=== PATIENT | female | born 1995 | race Caucasian/White ===

== ENCOUNTER 2016-08-16 23:12 | Emergency (ER) | payer OTHER ==
--- NOTE | 2016-08-16 23:45 | EDPHY ---
H & P Stated Complaint: fall while doing handstand, c/o R ankle pain Time Seen by Provider: 08/16/16 23:39 HPI/ROS: Chief Complaint: Right ankle pain HPI: 20-year-old female was doing a handstand against a door when the door open and she fell backwards into it landing on her right ankle and twisting it. She has had immediate onset of pain and swelling. He has not been able to weight bear. No prior injuries. No other complaints at this time ROS: 10 point Review of Systems is negative except as noted in the HPI. PMH: None Medications: None Allergies: Penicillin Social History: No smoking, occasional alcohol, no recreational drug use Family History: non-contributory Physical Exam: Gen: Awake, Alert, No Distress HEENT: Nose: no rhinorrhea Eyes: PERRLA, EOMI Mouth: Moist mucosa Neck: Supple, no JVD Chest: nontender, lungs clear to auscultation Heart: S1, S2 normal, no murmur Abd: Soft, non-tender, no guarding Back: no CVA tenderness, no midline tenderness Ext: Right ankle is diffusely swollen primarily medial aspect around the medial malleolus. She has no proximal fibular tenderness. Decreased range of motion secondary to pain. She has tenderness over the lateral medial malleolus. She has 2+ DP and PT pulses. Cap refills less than 3 seconds. Skin: no rash Neuro: CN II-XII intact, Sensation grossly intact, Strength 5/5 in bilateral upper and lower extremities - Personal History LMP (Females 10-55): 8-14 Days Ago Current Tetanus/Diphtheria Vaccine: Yes Current Tetanus Diphtheria and Acellular Pertussis (TDAP): Yes - Medical/Surgical History Hx Asthma: No Hx Chronic Respiratory Disease: No Hx Diabetes: No Hx Cardiac Disease: No Hx Renal Disease: No Hx Cirrhosis: No Hx Alcoholism: No Hx HIV/AIDS: No Hx Splenectomy or Spleen Trauma: No Other PMH: denies - Social History Smoking Status: Never smoked Constitutional: Initial Vital Signs Temperature (C) 37.1 C 08/16/16 23:13 Heart Rate 98 08/16/16 23:13 Respiratory Rate 18 08/16/16 23:13 Blood Pressure 119/92 H 08/16/16 23:13 O2 Sat (%) 97 08/16/16 23:13 O2 Delivery Mode Non-Rebreather Mask Allergies/Adverse Reactions: No Known Allergies Allergy (Unverified 08/16/16 23:19) Home Medications: Medication Instructions Recorded NK [No Known Home Meds] 08/16/16 Medical Decision Making - Diagnostics Imaging Results: Left ankle x-ray shows a trimalleolar fracture with moderate amount of displacement per my interpretation. Imaging: I viewed and interpreted images myself Procedures: Procedure: Procedural sedation. Indication: Right ankle trimalleolar fracture. A pre-sedation evaluation was completed on the patient just prior to the procedure. Patient is an appropriate candidate for procedural sedation with ASA class 1 E. The risks of the sedation were discussed including but not limited to dysrhythmia, need for airway intervention or general anesthesia, disability, ; and verbal consent obtained. A timeout was observed and patient's identity confirmed. The patient was sedated with fentanyl 50 mcg and propofol 120 mg. The patient was monitored with continuous pulse oximetry, capnography, and hospital monitor. There were no complications and no significant hypoxemia. I remained at the bedside for the sedation. The total time I spent in the procedural sedation was 20 minutes Procedure: Fracture Dislocation reduction. The right ankle fracture dislocation was reduced with traction counter traction and realignment without complications. Post reduction the patient's neurovascular exam is normal. The procedure was performed by myself. Procedure: Splint placement. A posterior with sugar-tong plaster splint was applied by me personally. The splint was adequately immobilizing the joint and distal to the splint the patient's circulation and sensation was intact. The procedure was performed by me. ED Course/Re-evaluation: Patient is awake alert after sedation. Repeat neurovascular assessment shows normal capillary refill and sensation intact in her right foot. She has good all line it. She has been given hydrocodone here for pain. She has been given instructions to follow up with Orthopedics later today. Patient will be discharged with crutches and follow-up as stated. - Data Points Medications Given: Discontinued Medications Fentanyl (Sublimaze) 50 mcg IVP EDNOW ONE Stop: 08/17/16 01:29 Last Admin: 08/17/16 01:28 Dose: 50 mcg Ondansetron HCl (Zofran) 4 mg IVP EDNOW ONE Stop: 08/17/16 01:16 Last Admin: 08/17/16 01:15 Dose: 4 mg Propofol (Diprivan) 40 mg IVP EDNOW ONE Stop: 08/17/16 01:33 Last Admin: 08/17/16 01:32 Dose: 40 mg Propofol (Diprivan) 40 mg IVP EDNOW ONE Stop: 08/17/16 01:34 Last Admin: 08/17/16 01:33 Dose: 40 mg Propofol (Diprivan) 40 mg IVP EDNOW ONE Stop: 08/17/16 01:38 Last Admin: 08/17/16 01:37 Dose: 40 mg Departure - Departure Disposition: Home, Routine, Self-Care Clinical Impression: Trimalleolar fracture Condition: Good Instructions: Hydrocodone/Acetaminophen (By mouth), Ankle Fracture (ED), Crutch Instructions (ED), Moderate Sedation (ED) Additional Instructions: Follow up with Orthopedics today. Call after 8 o'clock to be seen today to arrange surgical repair. You may use hydrocodone with acetaminophen as needed for pain. Referrals: Satinder Orozco MD [Medical Doctor] - As per Instructions
[2016-08-16] MEDS ORDERED: IBUPROFEN 600 MG TAB PO ONE (23:49)
[2016-08-17] MEDS ORDERED: ONDANSETRON 4 MG/2 ML VIAL ONE (01:04)
[2016-08-17] MEDS ORDERED: fentaNYL 100 MCG/2 ML INJ ONE (01:04)
[2016-08-17] MEDS ORDERED: PROPOFOL 200 MG/20 ML VIAL ONE (01:04)
[2016-08-17] MEDS ORDERED: ONDANSETRON 4 MG/2 ML VIAL IVP ONE (01:15)
[2016-08-17] MEDS ORDERED: fentaNYL 100 MCG/2 ML INJ IVP ONE (01:28)
[2016-08-17] MEDS ORDERED: PROPOFOL 200 MG/20 ML VIAL IVP ONE ×3 (01:32→01:37)
[2016-08-17] MEDS ORDERED: HYDROCOD/APAP 5/325 PREPACK#6 BTL TAKEHOME ONE (01:56)
[2016-08-17] MEDS ORDERED: HYDROCODONE/APAP 5/325 TAB ONE (02:04)
[2016-08-17 03:53] VITALS: BP 122/85; PULSE 64; RESP 16; TEMP 98.1; O2SAT 99
== END 2016-08-17 03:53 | disposition home or self-care (01) ==
PROC: 0QSHXZZ Reposition Left Tibia, External Approach (ICD-10-PCS; principal; 2016-08-16)
DX: S82.852A Displaced trimalleolar fracture of left lower leg, initial encounter for closed fracture (principal); W19.XXXA Unspecified fall, initial encounter
CPT/HCPCS: 96374; J2405; J2704; J3010

== ENCOUNTER 2016-08-22 19:59 | Emergency (ER) | payer OTHER ==
[2016-08-22 20:13] VITALS: RESP 16; TEMP 98.2
--- NOTE | 2016-08-22 20:39 | EDPHY ---
H & P Stated Complaint: pt fx R foot 1 week ago, thinks cast is too tight and increasing swelling Time Seen by Provider: 08/22/16 20:39 - Medical/Surgical History Hx Asthma: No Hx Chronic Respiratory Disease: No Hx Diabetes: No Hx Cardiac Disease: No Hx Renal Disease: No Hx Cirrhosis: No Hx Alcoholism: No Hx HIV/AIDS: No Hx Splenectomy or Spleen Trauma: No Other PMH: denies - Social History Smoking Status: Never smoked Constitutional: Initial Vital Signs Temperature (C) 36.8 C 08/22/16 20:10 Heart Rate 86 08/22/16 20:10 Respiratory Rate 16 08/22/16 20:10 Blood Pressure 120/82 H 08/22/16 20:10 O2 Sat (%) 100 08/22/16 20:10 O2 Delivery Mode Room Air Allergies/Adverse Reactions: No Known Allergies Allergy (Verified 08/22/16 20:13) Home Medications: Medication Instructions Recorded [place] 5/325 (*) 08/22/16 Medical Decision Making ED Course/Re-evaluation: CHIEF COMPLAINT: HISTORY OF PRESENT ILLNESS: must have 4 elements: Location, Quality, Severity , Duration, Timing, Context, Modifying Factors, Associated Signs and Symptoms REVIEW OF SYSTEMS: A 10 point review of systems was performed and is negative with the exception of the elements mentioned in the history of present illness. PHYSICAL EXAM: HR, BP, O2 Sat, RR. Temp noted General Appearance: Alert, well hydrated, appropriate, and non-toxic appearing. Head: Atraumatic without scalp tenderness or obvious injury Eyes: Pupils equal, round, reactive to light and accommodation, EOMI, no trauma , no injection. Ears: Clear bilaterally, no perforation, normal landmarks Nose: Atraumatic, no rhinorrhea, clear. Throat: There is no erythema or exudates, no lesions, normal tonsils, mucus membranes moist. Neck: Supple, 2+ carotid upstroke, nontender, no lymphadenopathy. Respiratory: No retractions, no distress, no wheezes, and no accessory muscle use. Lungs are clear to auscultation bilaterally. Cardiovascular: Regular rate and rhythm, no murmurs, rubs, or gallops. Bilateral carotid, radial, dorsalis pedis, and posterior tibial pulses intact. Good capillary refill all extremities. Gastrointestinal: Abdomen is soft, nontender, non-distended, no masses, no rebound, no guarding, no peritoneal signs. Musculoskeletal: Normal active ROM of all extremities, atraumatic. Neurological: Alert, appropriate, and interactive. The patient has normal DTRs and non-focal cranial nerves, motor, sensory, and cerebellar exam. Skin: No rashes, good turgor, no nodules on palpation. Past medical history: Past surgical history: Family history: Social history: DIAGNOSTICS/PROCEDURES/CRITICAL CARE TIME: DIFFERENTIAL DIAGNOSIS: MEDICAL DECISION MAKING: Departure - Departure Referrals: NONE *PRIMARY CARE P,. [Primary Care Provider] - As per Instructions
--- NOTE | 2016-08-22 20:53 | EDPHY ---
H & P Time Seen by Provider: 08/22/16 20:39 HPI/ROS: CHIEF COMPLAINT: Right leg swelling HISTORY OF PRESENT ILLNESS: 20-year-old female presents emergency department complaining of increased right leg swelling. Patient was seen in the emergency department 5 days ago with a trimalleolar fracture dislocation of the right ankle. Patient was reduced and placed in a splint, she followed up the next day with orthopedist. She is scheduled for surgery on Sunday. Patient states that her leg has been swelling, she has not been elevating this very much. Patient states 3 days ago she cut most of her splint off due to the swelling. She reports her pain is controlled, she denies numbness or tingling in her leg. She denies chest pain or shortness of breath. REVIEW OF SYSTEMS: A comprehensive 10 point review of systems is otherwise negative aside from elements mentioned in the history of present illness. Smoking Status: Never smoked Physical Exam: GEN: Awake, alert, oriented, no acute distress RESP: nl resp effort MSK: Right leg with swelling and below the knee. Significant swelling to ankle and foot. 2+ pedal pulses, sensation intact to light touch, ecchymosis to lateral ankle. Compartments are soft. SKIN: No break in skin Constitutional: Initial Vital Signs Temperature (C) 36.8 C 08/22/16 20:10 Heart Rate 86 08/22/16 20:10 Respiratory Rate 16 08/22/16 20:10 Blood Pressure 120/82 H 08/22/16 20:10 O2 Sat (%) 100 08/22/16 20:10 O2 Delivery Mode Room Air Allergies/Adverse Reactions: No Known Allergies Allergy (Verified 08/22/16 20:13) Home Medications: Medication Instructions Recorded [place] 5/325 (*) 08/22/16 MDM/Departure - MDM Imaging Results: Imaging Impressions Extremity Venous Study 08/22/16 20:45 Impression: No deep venous thrombosis in the right lower extremity. Findings discussed with Liz Hernandez NP at 22:54 hour, 08/22/2016. Imaging: Discussed imaging studies w/ call center coordinator Radiologist Procedures: A 3 way Ortho Glass lower leg splint was applied. After application of the splint, I returned and re-examined the patient. The splint was adequately immobilizing the joint. The patients circulation and sensation were intact distal to the splint. ED Course/Re-evaluation: Ultrasound obtained to rule out DVT due to right leg swelling below the knee. New 3 way Ortho Glass splint has been applied. Patient is discharged with plans to follow up with Ortho tomorrow as scheduled. Differential Diagnosis: Diagnosis considered but not limited to swelling due to fracture, DVT, compartment syndrome. - Depart Disposition: Home, Routine, Self-Care Clinical Impression: Closed right ankle fracture Qualifiers: Encounter type: subsequent encounter Fracture healing: with routine healing Qualified Code(s): S82.891D - Other fracture of right lower leg, subsequent encounter for closed fracture with routine healing Condition: Good Instructions: Ankle Fracture (ED), Ankle Dislocation (ED) Additional Instructions: Keep splint in place, do not remove, elevate your ankle at or above the level of your nose as much as possible. Ice through your splint. Return to the emergency department for any I do not have increased pain, numbness or tingling of leg any new symptoms or concerns. Referrals: NONE *PRIMARY CARE P,. [Primary Care Provider] - As per Instructions
[2016-08-22 23:49] VITALS: BP 118/72; PULSE 80; O2SAT 98
== END 2016-08-22 23:48 | disposition home or self-care (01) ==
DX: S82.891D Other fracture of right lower leg, subsequent encounter for closed fracture with routine healing (principal); X58.XXXD Exposure to other specified factors, subsequent encounter